=== PATIENT | female | born 1930 | race Caucasian/White ===

== ENCOUNTER 2017-08-16 17:45 | Emergency (ER) | payer OTHER ==
[~2017-08-16] VITALS: Ht 157.5 cm; Wt 77.7 kg
[~2017-08-16 17:45] MED LIST: ACTOS45 MG; AMARYL2 MG PO; ASCORBIC ACID100 MG PO; ATROVENT 00.5 MG/2.5 IH; Amaryl PO; BUDEPRION SR100 MG; BUPROPION HCL100 M1; CALCITRIOL0.25 MCG; CALCITRIOL0.25 MCG PO; CEFTIN250 MG PO; CENTRUM SILVER1 EAC3 PO; COREG3.125 M1 PO; CYANOCOBALAM1000 MCG PO; Ceftin PO; Centrum Silver,Certa PO; DESYREL12.5 MG PO; ENDOCET 5-3251 EACH PO; EXELON PATCH4.6 MG TD; EXELON PATCH4.6 MG TP; Ecotrin PO; FERROUS SULPHATE; FLORA-Q CAPSUL1 EAC1 PO; FLUOXETINE HCL20 M1 PO; FOLIC ACID1 MG PO; FUROSEMIDE40 MG PO; Feosol PO; Flora-Q,Risaquad PO; Folvite PO; GLIMEPIRIDE2 MG PO; IRON; IRON325 M1 PO; K-DUR10 ME2 PO; LASIX40 MG PO; LEVAQUIN250 MG PO; LEVEMIR FL100 UNIT/1 SC; LEVOTHYROXINE100 MCG PO; LEVOTHYROXINE88 MCG PO; LOPRESSOR12.5 MG PO; Lasix PO; Levothroid,Synthroid PO; MAG-OX400 M1 PO; METFORMIN HCL1000 MG; MULTIVITAMIN1 EAC2 PO; NEUTRA-PHOS,1 PACKET PO; NORVASC5 MG PO; NOVOLOG PE100 UNITS/ SC; Norvasc PO; PANTOPRAZOLE SO40 MG PO; PROTONIX40 MG PO; PROzac PO; Protonix PO; SIMVASTATIN40 MG PO; SYNTHROID88 MCG PO; TIROSINT50 MCG PO; TRIAMTERENE-HC1 EAC1; TYLENOL REGULA325 MG PO; Tylenol Regular Stre PO; VITAMIN B; VITAMIN B-122000 MC1 PO; VITAMIN B12; VITAMIN C; VITAMIN D2000 INTUN PO; VITAMIN D22000 UNIT PO; VITAMIN D32000 UNIT PO; Vitamin B-12 PO; Vitamin D PO; Vitamin D, Drisdol PO; WELLBUTRIN SR100 MG PO; ZESTRIL,PRINIVI10 M1 PO; ZOCOR40 MG PO; Zocor PO
[2017-08-16 18:39] LABS: BASOPHIL (%) 0.5 % (0-1); BASOPHIL COUNT 0.1 K/uL (0-0.1); EOSINOPHIL (%) 2.2 % (0-5); EOSINOPHIL COUNT 0.3 K/uL (0-0.3); HEMATOCRIT 34.2 % (36.0-46.0); HEMOGLOBIN 11.6 G/DL (11.9-15.5); IMMATURE GRANULOCYTE (%) 0.5 % (0.0-0.7); LYMPHOCYTE (%) 20.2 % (15-42); LYMPHOCYTE COUNT 2.6 K/uL (1.0-2.8); MCHC 33.9 G/DL (30.0-36.0); MCV 88.4 FL (83-99); MONOCYTE (%) 7.6 % (3-12); PLATELET COUNT 299 K/uL (156-360); RBC DIS.WIDTH-CV 13.8 % (11.8-14.6); RBC DIS.WIDTH-SD 44.5 % (39-53); RED BLOOD COUNT 3.87 M/uL (3.80-5.20)
[2017-08-16 18:50] LABS: INTER. NORMALIZED RATIO 1.1
[2017-08-16 18:51] LABS: CHLORIDE 105 mEq/L (99-109); POTASSIUM 4.5 mEq/L (3.7-5.4); SODIUM 138 mEq/L (136-147)
[2017-08-16 18:53] LABS: GLUCOSE 126 mg/dL (70-99); PTT 27.7 SEC (25-37)
[2017-08-16 18:57] LABS: GFR ESTIMATE (CALCULATED) 25 mL/min/; UREA NITROGEN (BUN) 40 mg/dL (9-23)
[2017-08-16 19:06] LABS: TROP-I INTERPRETATION NEGATIVE; TROPONIN-I 0.02 ng/mL (0.0-0.30)
[2017-08-16 19:09] LABS: APPEARANCE CLOUDY ((CLEAR)); BILIRUBIN NEGATIVE; BLOOD NEGATIVE; COLOR YELLOW ((YELLOW)); GLUCOSE (STRIP) NEGATIVE; KETONES NEGATIVE; LEUKOCYTES LARGE; NITRITE POSITIVE; PROTEIN (STRIP) NEGATIVE; SPECIFIC GRAVITY 1.014 (1.000-1.030); UROBILINOGEN 0.2 MG/DL (0.2-1.0)
[2017-08-16 19:45] LABS: RED BLOOD CELLS NONE SEEN /HPF (0-5); WHITE BLOOD CELLS 40-50 /HPF (0-5)
[2017-08-16 19:46] LABS: BACTERIA 2+ /HPF; EPITHELIAL CELLS NONE SEEN /HPF; MUCUS NONE SEEN /LPF; UCUL ADDED? YES
[2017-08-16] MEDS ORDERED: KEFLEX500 MG PO (22:19)
[2017-08-16 22:34] VITALS: BP 157/76
== END 2017-08-16 22:35 | disposition home or self-care (01) ==
LOC: EME 17:45
PROVIDERS: Emergency Medicine
DX: N39.0 Urinary tract infection, site not specified (principal); F02.80 Dementia in other diseases classified elsewhere, unspecified severity, without behavioral disturbance, psychotic disturbance, mood disturbance, and anxiety; G30.9 Alzheimer's disease, unspecified; E11.22 Type 2 diabetes mellitus with diabetic chronic kidney disease; I13.2 Hypertensive heart and chronic kidney disease with heart failure and with stage 5 chronic kidney disease, or end stage renal disease; I50.9 Heart failure, unspecified; N18.6 End stage renal disease; Z79.4 Long term (current) use of insulin; F32.9 Major depressive disorder, single episode, unspecified; I25.10 Atherosclerotic heart disease of native coronary artery without angina pectoris; K21.9 Gastro-esophageal reflux disease without esophagitis
CPT/HCPCS: 70450; 71045; 80048; 81003; 84484; 85025; 85610; 85730; 87040; 87077; 87086; 87186; 93005; 99281; 99285; J0696